=== PATIENT | female | born 1945 | race Caucasian/White ===

== ENCOUNTER → 2016-10-02 | Outpatient (CLI) | payer MEDICARE, OTHER ==
--- NOTE | 2016-10-03 09:37 | MR ---
EXAMINATION TYPE: MR knee RT wo con DATE OF EXAM: 10/02/2016 COMPARISON: NONE HISTORY: Right Knee pain x4 months TECHNIQUE: Multiplanar, multisequence imaging of the right knee is performed without IV contrast. FINDINGS: There is significant narrowing of the joint spaces with hypertrophic spur formation compati ble severe osteoarthritis. There is extrusion of the medial meniscus arthritic degenerative meniscal tear. Lateral meniscus demonstrates a linear tear extending from the posterior horn through the anterior ho rn with no definite bucket-handle tear. 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 Thinning of the patell ofemoral cartilage compatible with grade III chondromalacia retinaculum intact. Patellar and quadriceps tendons are intact. Posterior cruciate ligament is intact however there is a tear involving the anterior cruciate ligamen t. Lateral collateral ligament and medial collateral ligament are intact as does appear to be interme diate signal near the origin of the lateral collateral ligament which may represent strain. Popliteus tendon has a normal appearance. There is a small popliteal fossa cyst measuring 0.7 x 1 point a by 4 cm. Marrow changes involving the femur and tibia are compatible with with reactive changes secondary to s evere osteoarthritis. Lobulated intermediate signal posterior to the medial femoral condyle likely re lated to a spur rather than previous desmoid or avulsion injury. Correlate clinically. IMPRESSION: 1. Severe osteoarthritis and chondromalacia as discussed above. 2. Degenerative meniscal tears as discussed above 3. ACL tear. 4. Lateral collateral ligament proximal strain with no definite tear
== END ==
LOC: RADMRIMAIN 19:22
PROVIDERS: ATTEND Family Medicine
DX: M17.11 Unilateral primary osteoarthritis, right knee (principal); M94.261 Chondromalacia, right knee; M23.206 Derangement of unspecified meniscus due to old tear or injury, right knee